=== PATIENT | female | born 1945 | race Caucasian/White ===

== ENCOUNTER 2018-01-19 07:50 | Inpatient (IN) | payer MEDICARE ==
[2018-01-12 17:00] LABS: BASOPHILS # (AUTO) 0.1 X10'3 (0-0.2); BASOPHILS % (AUTO) 1.2 % (0-1); EOSINOPHILS # (AUTO) 0.3 X10'3 (0-0.9); EOSINOPHILS % (AUTO) 3.9 % (0-6); LYMPHOCYTES # (AUTO) 1.6 X10'3 (1.1-4.8); LYMPHOCYTES % (AUTO) 21.9 % (21-51); MEAN CORPUSCULAR HEMOGLOBIN 33.1 PG (27.0-31.0); MEAN CORPUSCULAR HGB CONC 34.3 % (33.0-36.5); MEAN CORPUSCULAR VOLUME 96.6 FL (78-98); MEAN PLATELET VOLUME 7.7 FL (7.4-10.4); MONOCYTES # (AUTO) 0.8 X10'3 (0-0.9); MONOCYTES % (AUTO) 11.1 % (2-12); NEUTROPHILS # (AUTO) 4.4 X10'3 (1.8-7.7); NEUTROPHILS % (AUTO) 61.9 % (42-75); PRE OP HEMATOCRIT 33.3 % (35.0-45.0); PRE OP HEMOGLOBIN 11.4 g/dL (12.0-16.0); PRE OP PLATELET COUNT 308 X10'3 (140-440); RED BLOOD COUNT 3.44 X10'6 (4.20-5.60); RED CELL DISTRIBUTION WIDTH 12.6 % (11.5-14.5)
[2018-01-12 17:10] LABS: PRE OP PROTIME 9.9 SECONDS (9.0-12.0)
[2018-01-12 17:18] LABS: ALBUMIN 3.8 G/DL (3.4-5.0); ALBUMIN/GLOBULIN RATIO 0.9 (1.1-1.5); ALKALINE PHOSPHATASE 125 IU/L (46-116); BLOOD UREA NITROGEN 22 MG/DL (7-18); BUN/CREATININE RATIO 24.4 (6.6-38.0); CHLORIDE 101 MMOL/L (99-107); PRE OP ALT 26 U/L (30-65); PRE OP ANION GAP 7 (8-16); PRE OP AST 21 U/L (10-37); PRE OP BILIRUB, TOTAL 0.2 MG/DL (0.0-1.0); PRE OP GLUCOSE 90 MG/DL (70-104); PRE OP POTASSIUM 4.1 MMOL/L (3.4-5.1); PRE OP SODIUM 139 MMOL/L (135-145); TOTAL CARBON DIOXIDE 30.8 MMOL/L (24-32); TOTAL PROTEIN 7.9 G/DL (6.4-8.2); eGFR 62 ML/MIN
[2018-01-13 12:41] LABS: CLARITY,URINE CLEAR (Clear); COLOR,URINE YELLOW (Yellow); GLUCOSE, URINE NEGATIVE (Neg); KETONES,URINE NEGATIVE (Neg); LEUKOCYTE ESTERASE ,URINE NEGATIVE (Neg); NITRITES, URINE NEGATIVE (Neg); OCCULT BLOOD,URINE NEGATIVE (Neg); PH,URINE 5.5 (4.8-8.0); PROTEIN,URINE NEGATIVE (Neg); UROBILINOGEN,URINE 0.2 E.U/dL (0.2-1.0)
[2018-01-13 12:43] LABS: UA COLLECTION TYPE NON-SPECIFIED
[2018-01-19] VITALS (25 sets, daily range): BP systolic 99–164; BP diastolic 54–81
[~2018-01-19] VITALS: Ht 160 cm; Wt 66.0 kg
[~2018-01-19 07:50] MED LIST: AMLO5TAB16 PO; ASPI-529 PO; BENA20TA10 PO; BUPR-84 PO; DOCU-264 PO; DOCUMENT DATE & TIME OF BETA-BLOCKER PO ONE; HYDROcodone/acetaminophen 10/325mg tab PO PRN; HYDROmorphone 1 mg/ml syringe IV PRN; MECL-111 PO; METO1TAB11 PO; PARO40TA4 PO; POTA10TA15 PO; ROSU10TA27 PO; TRAZ-218 PO; acetaminophen 325mg tablet PO ONE; acetaminophen 325mg tablet PO PRN; bisacodyl 10mg suppository rectal RC PRN; cefazolin/dext.iso 2gm/100 ML IV ONE; celeCOXIB 100mg capsule PO ONE; diphenhydrAMINE 25mg capsule PO PRN; famotidine 20mg tablet PO ONE; gabapentin 300mg capsule PO ONE; magnesium hydroxide 30ml (MOM) UD suspension PO PRN; metoclopramide 5 mg/ml inj IV ONE; ondansetron/PF 4mg/2ml inj IV PRN; oxyCODONE SR 10mg (sust. release) tab -2 tabs (20mg) PO ONE; ringers solution, lacted 1,000 ML IV SCH; tranexamic acid inj. 1,000 MG in normal saline 100ml IV soln 90 ML IV ONE; vancomycin inj 1,500 MG in normal saline 300ml IV soln IV ONE
[2018-01-19] MEDS ORDERED: non-formulary drug (Benazepril HCl 1 TAB) PO SCH (08:00)
[2018-01-19] MEDS ORDERED: metoprolol tartrate 50mg tablet PO ONE (09:10)
[2018-01-19] MEDS ORDERED: proCHLORperazine 10 MG/2 ml inj IV PRN (09:40)
[2018-01-19] MEDS ORDERED: meperidine/PF 25mg/ml syringe IV PRN ×3 (09:40)
[2018-01-19] MEDS ORDERED: ringers solution, lacted 1,000 ML IV SCH (09:40)
[2018-01-19] MEDS ORDERED: ondansetron/PF 4mg/2ml inj IV PRN (09:40)
[2018-01-19] MEDS ORDERED: morphine 4 MG/ML inj SYRINge IV PRN ×2 (09:40)
[2018-01-19] MEDS ORDERED: oxyCODONE SR 10mg (sust. release) tab PO ONE (09:50)
[2018-01-19] MEDS ORDERED: vancomycin 1,000mg inj ONE (10:18)
[2018-01-19] MEDS ORDERED: epiNEPHrine 1 mg/ml inj ONE (10:18)
[2018-01-19] MEDS ORDERED: cloNIDine hcl/PF 100mcg/ml inj ONE (10:18)
[2018-01-19] MEDS ORDERED: ketorolac trometh. 30mg/ml inj. ONE (10:18)
[2018-01-19] MEDS ORDERED: ROPIVAcaine 0.5% (5mg/ml) 30ml vial ONE (10:18)
[2018-01-19] MEDS ORDERED: midazolam 2 mg/2 ml injection ONE (10:39)
[2018-01-19] MEDS ORDERED: tranexamic acid inj. 1,000 MG in normal saline 100ml IV soln 90 ML IV ONE (10:45)
[2018-01-19] MEDS ORDERED: tetracaine 1% (10mg/ml) pres. free inj. ONE (10:53)
[2018-01-19] MEDS ORDERED: MIDAZolam 5mg/5ml vial ONE (11:02)
[2018-01-19] MEDS ORDERED: fentaNYL/PF 50MCG/1 ML 2ML syringe ONE (11:02)
[2018-01-19] MEDS ORDERED: BUPIVAcaine/dex-water/PF 7.5 mg/ml 2ml ampul ONE (11:07)
[2018-01-19] MEDS ORDERED: propofol inj 20 ML IV ONE (12:03)
[2018-01-19] MEDS ORDERED: ePHEDrine 50MG/ML INJ. ONE (12:03)
[2018-01-19] MEDS: HYDROcodone/acetaminophen 10/325mg tab PO PRN ×2 (15:42→20:27)
[2018-01-19] MEDS: potassium cl 20mEq in 1/2 NS 1,000 ML IV SCH (15:43)
[2018-01-19] MEDS: ceFAZolin 1GM/D5W- ADD-VANTAGE 50 ML IV SCH (15:44)
[2018-01-19] MEDS ORDERED: tranexamic acid inj. 660 MG in normal saline 100ml IV soln 100 ML IV ONE (16:00)
[2018-01-19] MEDS ORDERED: potassium chloride 10mEq ER tablet PO SCH (20:00)
[2018-01-19] MEDS ORDERED: vancomycin/NS 1 GM ADD-VANTAGE 250 ML IV SCH (20:00)
[2018-01-19] MEDS: buPROPion SR 150mg tablet PO SCH (20:27)
[2018-01-19] MEDS: sennosides 8.6mg tablet PO SCH (20:28)
[2018-01-19] MEDS: atorvastatin 20mg tablet PO SCH (20:28)
[2018-01-19] MEDS: meclizine 12.5mg tablet PO SCH (20:28)
[2018-01-19] MEDS: traZODone 50mg tablet PO SCH (20:28)
[2018-01-19] MEDS: gabapentin 300mg capsule PO SCH ×2 (20:29→20:55)
[2018-01-20] MEDS: ceFAZolin 1GM/D5W- ADD-VANTAGE 50 ML IV SCH (00:45)
[2018-01-20] MEDS: HYDROcodone/acetaminophen 10/325mg tab PO PRN ×4 (00:45→21:23)
[2018-01-20] MEDS: potassium cl 20mEq in 1/2 NS 1,000 ML IV SCH ×4 (00:51→22:30)
[2018-01-20 02:00] VITALS: BP 98/48
[2018-01-20 05:31] LABS: BASOPHILS % (AUTO) 0.3 % (0-1); EOSINOPHILS # (AUTO) 0.3 X10'3 (0-0.9); EOSINOPHILS % (AUTO) 4.2 % (0-6); HEMATOCRIT 27.2 % (35.0-45.0); HEMOGLOBIN 9.1 g/dl (12.0-16.0); LYMPHOCYTES # (AUTO) 0.9 X10'3 (1.1-4.8); LYMPHOCYTES % (AUTO) 14.2 % (21-51); MEAN CORPUSCULAR HEMOGLOBIN 32.6 PG (27.0-31.0); MEAN CORPUSCULAR HGB CONC 33.6 % (33.0-36.5); MEAN CORPUSCULAR VOLUME 96.8 FL (78-98); MEAN PLATELET VOLUME 7.3 FL (7.4-10.4); MONOCYTES # (AUTO) 0.5 X10'3 (0-0.9); NEUTROPHILS # (AUTO) 4.8 X10'3 (1.8-7.7); NEUTROPHILS % (AUTO) 73.3 % (42-75); PLATELET COUNT 241 X10'3 (140-440); RED BLOOD COUNT 2.81 X10'6 (4.20-5.60); RED CELL DISTRIBUTION WIDTH 12.2 % (11.5-14.5); WHITE BLOOD COUNT 6.6 X10'3 (4.5-11.0)
[2018-01-20 05:47] LABS: ANION GAP 7 (8-16); CHLORIDE 103 MMOL/L (99-107); POTASSIUM 4.7 MMOL/L (3.5-5.1); SODIUM 137 MMOL/L (135-145); TOTAL CARBON DIOXIDE 27.3 MMOL/L (24-32)
[2018-01-20 06:00] VITALS: BP 116/50
[2018-01-20] MEDS: amLODIPine 5mg tablet PO SCH (08:00)
[2018-01-20] MEDS: metoprolol succinate 25mg (24-HOUR) SR. Tablet PO SCH (08:00)
[2018-01-20] MEDS: multivitamins, therapeutics tablet PO SCH (08:00)
[2018-01-20] MEDS: gabapentin 300mg capsule PO SCH ×3 (08:00→20:10)
[2018-01-20] MEDS: PARoxetine 20mg tablet PO SCH (08:00)
[2018-01-20] MEDS: lisinopril 20mg tablet PO SCH (08:00)
[2018-01-20] MEDS: meclizine 12.5mg tablet PO SCH ×3 (08:00→20:10)
[2018-01-20] MEDS: HYDROchlorothiazide 25mg tablet PO SCH (08:00)
[2018-01-20] MEDS: ascorbic acid 500mg tablet PO SCH ×2 (08:00→20:09)
[2018-01-20] MEDS: potassium chloride 10mEq ER tablet PO SCH ×2 (08:00→19:48)
[2018-01-20] MEDS: aspirin 325mg tablet PO SCH (09:24)
[2018-01-20 10:00] VITALS: BP 98/46
[2018-01-20] MEDS: lactose-reduced food (Ensure High Protein) 237ml bottle PO SCH ×2 (13:00→18:00)
[2018-01-20 15:09] VITALS: BP 125/53
[2018-01-20 18:00] VITALS: BP 131/69
[2018-01-20] MEDS: sennosides 8.6mg tablet PO SCH (20:09)
[2018-01-20] MEDS: buPROPion SR 150mg tablet PO SCH (20:10)
[2018-01-20] MEDS: traZODone 50mg tablet PO SCH (20:10)
[2018-01-20] MEDS: atorvastatin 20mg tablet PO SCH (20:10)
[2018-01-20 22:00] VITALS: BP 124/74
[2018-01-21] MEDS: HYDROcodone/acetaminophen 10/325mg tab PO PRN ×2 (05:16→09:59)
[2018-01-21 05:56] LABS: BASOPHILS % (AUTO) 0.3 % (0-1); EOSINOPHILS # (AUTO) 0.2 X10'3 (0-0.9); HEMATOCRIT 26.6 % (35.0-45.0); HEMOGLOBIN 9.1 g/dl (12.0-16.0); LYMPHOCYTES # (AUTO) 1.1 X10'3 (1.1-4.8); LYMPHOCYTES % (AUTO) 13.6 % (21-51); MEAN CORPUSCULAR HEMOGLOBIN 32.4 PG (27.0-31.0); MEAN CORPUSCULAR HGB CONC 34.2 % (33.0-36.5); MEAN CORPUSCULAR VOLUME 94.8 FL (78-98); MEAN PLATELET VOLUME 7.6 FL (7.4-10.4); MONOCYTES # (AUTO) 0.8 X10'3 (0-0.9); MONOCYTES % (AUTO) 9.9 % (2-12); NEUTROPHILS % (AUTO) 73.2 % (42-75); PLATELET COUNT 238 X10'3 (140-440); RED CELL DISTRIBUTION WIDTH 12.3 % (11.5-14.5); WHITE BLOOD COUNT 8.2 X10'3 (4.5-11.0)
[2018-01-21 06:00] VITALS: BP 130/65
[2018-01-21] MEDS: potassium cl 20mEq in 1/2 NS 1,000 ML IV SCH (06:30)
[2018-01-21] MEDS ORDERED: ASPI-1 PO (06:42)
[2018-01-21] MEDS: amLODIPine 5mg tablet PO SCH (08:00)
[2018-01-21] MEDS: metoprolol succinate 25mg (24-HOUR) SR. Tablet PO SCH (08:00)
[2018-01-21] MEDS: HYDROchlorothiazide 25mg tablet PO SCH (08:00)
[2018-01-21] MEDS: lisinopril 20mg tablet PO SCH (08:00)
[2018-01-21] MEDS: potassium chloride 10mEq ER tablet PO SCH (08:19)
[2018-01-21] MEDS: ascorbic acid 500mg tablet PO SCH (08:20)
[2018-01-21] MEDS: PARoxetine 20mg tablet PO SCH (08:20)
[2018-01-21] MEDS: aspirin 325mg tablet PO SCH (08:20)
[2018-01-21] MEDS: meclizine 12.5mg tablet PO SCH ×2 (08:21→12:56)
[2018-01-21] MEDS: gabapentin 300mg capsule PO SCH ×2 (08:21→12:56)
[2018-01-21] MEDS: multivitamins, therapeutics tablet PO SCH (08:21)
[2018-01-21] MEDS: lactose-reduced food (Ensure High Protein) 237ml bottle PO SCH ×2 (08:22→12:56)
[2018-01-21 08:30] VITALS: BP 93/57
[2018-01-21 10:00] VITALS: BP 97/48
== END 2018-01-21 17:10 | disposition home health service (06) | DRG 470 ==
LOC: PAS IN 07:50 → EDSTATUS 12:00 → ORTHO 4S 15:05
PROVIDERS: ADMIT Orthopaedic Surgery; ATTEND Orthopaedic Surgery
PROC: 0SR906Z Replacement of Right Hip Joint with Oxidized Zirconium on Polyethylene Synthetic Substitute, Open Approach (ICD-10-PCS; principal; 2018-01-19 11:02)
DX: M16.11 Unilateral primary osteoarthritis, right hip (principal); D62 Acute posthemorrhagic anemia; E78.5 Hyperlipidemia, unspecified; I10 Essential (primary) hypertension; J44.9 Chronic obstructive pulmonary disease, unspecified; F41.9 Anxiety disorder, unspecified; G89.29 Other chronic pain; M54.9 Dorsalgia, unspecified; Z79.82 Long term (current) use of aspirin; Z79.899 Other long term (current) drug therapy
CPT/HCPCS: 36415; 71046; 72170; 80051; 80053; 81003; 85025; 85610; 85730; 86885; 86900; 86901; 87070; 97110; 97116; 97162; 97530; A4615; A7000; C1758; C1776; J0171; J0690; J0735; J1170; J1885; J2250; J2704; J2795; J3010; J3370; J3490; J7030; J7120; J8597